=== PATIENT | male | born 1965 | race Two or more races ===

== ENCOUNTER → 2024-08-24 | Outpatient (CLI) | payer MEDICARE, MEDICAID, SELFPAY ==
[2024-08-24 21:25] LABS: Collection Type, Urine Clean Catch; Squamous Epithelial Cell,Urine 0 /hpf (0-5)
[2024-08-24 21:31] LABS: Basophils % (Auto) 0 % (0-2.5); Eosinophils # (Auto) 0.2 Thou/mm3 (0.0-0.5); Eosinophils % (Auto) 3 % (0-10); Hematocrit 30.6 % (41.0-53.0); Hemoglobin 11.3 g/dL (13.5-16.0); Immature Granulocytes % (Auto) 0 % (0-0); Immature Granulocytes Auto 0.02 Thou/mm3 (0.00-0.00); Lymphocytes % (Auto) 36 % (10-50); Mean Corpuscular HGB Conc 36.9 g/dl (31.0-37.0); Mean Corpuscular Hemoglobin 32.5 pg (25.0-35.0); Mean Corpuscular Volume 88 fL (80-100); Monocytes # (Auto) 0.5 Thou/mm3 (0.0-0.8); Monocytes % (Auto) 9 % (0-12); Neutrophils # (Auto) 2.8 Thou/mm3 (1.8-7.7); Neutrophils % (Auto) 51 % (37-80); Nucleated Red Blood Cell % 0 /100 WBC (0); Platelet Count 214 Thou/mm3 (140-440); RDW Standard Deviation 39.7 fL (35.1-43.9); Red Blood Count 3.48 Miln/mm3 (4.50-5.90); White Blood Count 5.5 Thou/mm3 (3.8-10.6)
[2024-08-24 21:36] LABS: Bilirubin,Urine Negative (Negative); Blood,Urine Negative (Negative); Clarity,Urine Clear (Clear/Hazy); Color,Urine Colorless (Lt Yel-Yel); Culture Indicated,Urine Not Indicated; Glucose, Urine Negative (Negative); Ketones,Urine Negative (Negative); Leukocyte Esterase,Urine Negative (Negative); Nitrite,Urine Negative (Negative); Protein,Urine Negative (Neg - Trace); RBC,Urine < 1 /hpf (0-3); Specific Gravity,Urine 1.005 (1.001-1.035); Urobilinogen,Urine Negative mg/dL (0.0-1.0); WBC,Urine < 1 /hpf (0-5)
[2024-08-24 21:51] LABS: Alanine Aminotransferase 13 U/L (10-49); Albumin, Serum 4.5 gm/dL (3.5-5.0); Albumin/Globulin Ratio 1.8 (1.2-2.2); Alkaline Phosphatase 92 U/L (46-116); Anion Gap 5 (7-16); Aspartate Amino Transferase 20 U/L (0-34); BUN/Creatinine Ratio 13 Ratio (12-20); Bilirubin,Total 0.2 mg/dL (0.3-1.2); Blood Urea Nitrogen 13 mg/dL (9-23); Calcium 10.3 mg/dL (8.3-10.6); Calcium (Corrected) 10.3 mg/dL (8.5-10.1); Carbon Dioxide 28.3 mMol/L (20.0-31.0); Chloride 90 mMol/L (98-107); Globulin 2.5 gm/dL (2.3-3.5); Glucose 79 mg/dL (74-106); Osmolality,Calculated 246 (275-295); Potassium 4.8 mMol/L (3.4-5.1); Sodium 123 mMol/L (136-145); eGFR > 60 See Note
== END | disposition home or self-care (01) ==
LOC: SLDO 21:16
PROVIDERS: PCP Family Medicine; Referring Provider Family Medicine; Visit Provider Family Medicine
DX: R68.89 Other general symptoms and signs (principal)
CPT/HCPCS: 36415; 80053; 81001; 85025

== ENCOUNTER → 2024-09-01 | Outpatient (CLI) | payer MEDICARE, MEDICAID, SELFPAY ==
[2024-09-01 19:00] LABS: Collection Type, Urine Catheter; Squamous Epithelial Cell,Urine 0 /hpf (0-5)
[2024-09-01 19:43] LABS: Bilirubin,Urine Negative (Negative); Blood,Urine Negative (Negative); Clarity,Urine Clear (Clear/Hazy); Color,Urine Colorless (Lt Yel-Yel); Glucose, Urine Negative (Negative); Ketones,Urine Negative (Negative); Leukocyte Esterase,Urine Negative (Negative); Nitrite,Urine Negative (Negative); Protein,Urine Negative (Neg - Trace); RBC,Urine 1 /hpf (0-3); Specific Gravity,Urine 1.006 (1.001-1.035); Urobilinogen,Urine Negative mg/dL (0.0-1.0); WBC,Urine < 1 /hpf (0-5)
== END | disposition home or self-care (01) ==
LOC: SLDO 18:52
PROVIDERS: PCP Internal Medicine; Referring Provider Internal Medicine; Visit Provider Internal Medicine
DX: Z03.89 Encounter for observation for other suspected diseases and conditions ruled out (principal)
CPT/HCPCS: 81001; 87086

== ENCOUNTER 2024-09-13 10:55 | Day surgery (SDC) | payer MEDICARE, MEDICAID, SELFPAY ==
[2024-09-12 12:34] VITALS: BMI 31.6
--- NOTE | 2024-09-12 13:58 | SUR.PREOP ---
Instructions given to Mera at [facility], pt NPO afer MN, pt needs to arrived at 1100 tomorrow for procedure at 1300.
[2024-09-13 11:28] VITALS: BP 123/68; PULSE 66; RESP 20; TEMP 36.4; O2SAT 98; BMI 29.9
[2024-09-13] MEDS: RINGERS LACTATED 1000 ML 1,000 ML 20 ML IV (12:09)
--- NOTE | 2024-09-13 13:49 | XR_ITS ---
Examination: Abdomen AP single view Technique: AP portable supine abdomen, single view Exam date and time: September 13, 2024 1408 hrs. Indications: Postop cystography today Findings: Large amounts of stool throughout the colon Stool in the colon overlies the kidneys No renal calculi Pelvic phleboliths Impression: No renal or ureteral calculi noted
[2024-09-13 13:52] VITALS: BP 141/74; PULSE 77; RESP 12; TEMP 36.5; O2SAT 95
--- NOTE | 2024-09-13 13:52 | SUR.PHASEII ---
1352: Pt. Wakes to name then drifts back to sleep, vitals stable, breathing unlabored, no signs of distress, no dressing in place, no active bleed noted, report received from MD Melgar and Harley LARKIN.
[2024-09-13 13:57] VITALS: BP 129/77; PULSE 72; RESP 12; TEMP 36.5; O2SAT 96
[2024-09-13 14:02] VITALS: BP 117/80; PULSE 70; RESP 18; TEMP 36.4; O2SAT 96
[2024-09-13 14:07] VITALS: BP 143/72; PULSE 69; RESP 18; TEMP 36.4; O2SAT 98
[2024-09-13 14:22] VITALS: BP 136/78; PULSE 69; RESP 19; TEMP 36.3; O2SAT 99
--- NOTE | 2024-09-13 14:25 | SUR.PHASEII ---
1425: Pt. AAOx4, vitals stable, breathing unlabored, no complaint of pain or nausea, no dressing in place, no active bleed noted, pt. tolerated sips of juice well, pt. ambulated to wheelchair with steady gait and no assist, no complications. Gave discharge instructions to the pt. and [facility] staff, both verbalized understanding and had no further questions. Pt. left with all personal belongings.
--- NOTE | 2024-09-16 10:03 | ESOP_ITS ---
RE: ANTHONY CARDONA : 1965 DATE OF OPERATION: 09/13/2024 The patient is a 58-year-old male from [facility] with history of chronic urinary retention. PREOPERATIVE DIAGNOSIS: Chronic urinary retention. POSTOPERATIVE DIAGNOSES: Chronic urinary retention with medium-sized prostate with heavy trabeculation of urinary bladder with urinary retention. PROCEDURE PERFORMED: Cystourethroscopy with urethral dilatation. ANESTHESIA: Monitored anesthesia by Dr. Melgar. INDICATION: The patient is a 58-year-old male from [facility] with history of schizophrenia, history of diabetes mellitus. The patient on multiple psych medications and has chronic urinary retention. The patient had an ultrasound of the abdomen and pelvis which revealed urinary retention. There were no urinary calculi seen on the ultrasound. The KUB film was taken today. It did not reveal any radiopaque calculi in his abdomen over the kidneys or in the area of ureters or bladder. The patient did have a Quezada catheter placed at [facility], but the patient pulled the catheter out. The patient had a history of diabetes mellitus and he is on metformin. The patient's serum glucose is 88 and his serum creatinine is 0.98. He is in chronic urinary retention. He has been seen here and had a cystoscopy in the past, which revealed high residual urine. The patient had cystoscopy done in the past. At that time in 2022, the patient had a residual urine of 700 mL and was asked to be put on tamsulosin 0.4 mg. The patient's prostatic specific antigen is normal and his urine culture sensitivity examination is also normal without any evidence of urinary tract infection. The patient was now scheduled to have cystoscopy. Consent has been obtained. DESCRIPTION OF PROCEDURE: After the patient was brought to the operating table under adequate monitored anesthesia given by Dr. Melgar, parts were prepped and draped in the usual fashion. Cystoscopy was then carried out, which revealed adequate urethral meatus, normal-appearing urethra. Prostate is moderately enlarged with bilobed prostate. There was a large amount of urine approximately 2 liters of urine. The patient's bladder is hypotonic flabby bladder. There are no intravesical stones or tumors. Ureteral orifice are found to be normal in position and appearance. Bladder mucosa is very, very heavily . It was showing hypotonic bladder with a large capacity. Urine was recovered and was sent for culture and sensitivity examination. Cystoscope was then removed. Entire urethra was reinspected. The patient was then transferred to the recovery room in a satisfactory condition having tolerated the entire procedure well. KUB film was obtained again in the recovery room, which revealed no radiopaque calculi in the area of the kidney and bladder and ureters. IMPRESSION: This 58-year-old male from [facility] has a chronic urinary retention. The patient is diabetic on metformin. His blood glucose on the last report is glucose of 88 and serum creatinine is 0.98. His PSA has been normal. Urine culture and sensitivity examination was no growth. The patient had a Quezada catheter put in, but he took the catheter out. The patient's chronic urinary retention could be because of his psych conditions and psych medications or could be from his longstanding diabetes mellitus. The patient's prostate is not that large or obstructive on cystoscopy and I do not think that his prostate is the cause of his chronic urinary retention. The patient is also placed on tamsulosin 0.4 mg twice a day. I would see the patient in the office at [facility] in 2 weeks. We will have to keep this patient without a catheter because the patient removes this catheter with the Quezada balloon still on, that could cause severe damage to his urethra and bleeding. His creatinine is normal in spite of his chronic urinary retention and we will have to watch him if his psych medication can be reduced, we will see the response of his tamsulosin and we will see if his residual urine goes down. Thank you very much for your kind referral. cc: [facility] DT: 14:37:01 TT: 21:11:00 Ref: [id number] - TID: [id number]
== END 2024-09-13 14:25 | disposition home or self-care (01) ==
PROVIDERS: Referring Provider Surgery; Visit Provider Surgery
PROC: 0TJB8ZZ Inspection of Bladder, Via Natural or Artificial Opening Endoscopic (ICD-10-PCS; CPT 52000; principal; 2024-09-13 13:00)
DX: N40.1 Benign prostatic hyperplasia with lower urinary tract symptoms (principal); E11.9 Type 2 diabetes mellitus without complications; F20.9 Schizophrenia, unspecified; R33.9 Retention of urine, unspecified
CPT/HCPCS: 52000; 74018; 87086; A4217; A4649; J2250; J2704; J3010; J7120